=== PATIENT | male | born 1970 | race Caucasian/White ===

== ENCOUNTER → 2020-11-17 | Outpatient (CLI) | payer OTHER ==
[~2020-11-17] MED LIST: BENTYL 10MG CAP10 MG PO; HYDRALAZINE HCL25 MG PO; IBUPROFEN600 MG PO; MOBIC7.5 MG PO; NORFLEX 100 MG100 MG PO; PROTONIX40 MG PO; Voltaren Gel 1 % TOP; ZOFRAN ODT 4 MG4 MG PO
== END ==
LOC: KOH-I 13:41
DX: N18.32 Chronic kidney disease, stage 3b (principal); G31.9 Degenerative disease of nervous system, unspecified
CPT/HCPCS: 76775

== ENCOUNTER → 2021-01-09 | Outpatient (CLI) | payer OTHER | LOC: LAB 10:12 | PROVIDERS: Physician Assistant Medical | DX: I10 Essential (primary) hypertension (principal) | CPT/HCPCS: 36415; 80048 ==

== ENCOUNTER → 2021-01-19 | Outpatient (CLI) | payer OTHER | LOC: LAB 15:12 | PROVIDERS: Physician Assistant Medical | DX: N18.9 Chronic kidney disease, unspecified (principal) | CPT/HCPCS: 36415; 80069 ==

== ENCOUNTER → 2021-01-25 | Outpatient (CLI) | payer OTHER | LOC: SLEEP 11:38 | DX: G47.33 Obstructive sleep apnea (adult) (pediatric) (principal) | CPT/HCPCS: 95810 ==

== ENCOUNTER → 2021-01-29 | Outpatient (CLI) | payer OTHER ==
[2021-01-29 18:23] LABS: HEMOGLOBIN 14.1 gm/dl (14.0-17.5); RED BLOOD COUNT 4.6 M/UL (4.20-5.50)
== END ==
LOC: LAB 17:26
PROVIDERS: Physician Assistant Medical
DX: N18.9 Chronic kidney disease, unspecified (principal)
CPT/HCPCS: 36415; 80069; 82043; 82570; 84156; 85027

== ENCOUNTER → 2021-03-12 | Outpatient (CLI) | payer OTHER ==
[2021-03-12 19:50] LABS: HEMOGLOBIN 13.7 gm/dl (14.0-17.5); RED BLOOD COUNT 4.44 M/UL (4.20-5.50); WHITE BLOOD COUNT 11.6 K/UL (4.5-11.0)
[2021-03-14 08:14] LABS: HIV SCREEN 4TH GENERATION WRFX Non Reactive (Non Reactive)
[2021-03-14 09:13] LABS: COMPLEMENT C3, SERUM 129 mg/dL (82-167); COMPLEMENT C4, SERUM 21 mg/dL (12-38); HBSAG SCREEN Negative (Negative); HEP A AB, IGM Negative (Negative); HEP B CORE AB, IGM Negative (Negative); HEP C VIRUS AB <0.1 (0.0-0.9)
[2021-03-14 16:09] LABS: ANTI-DSDNA ANTIBODIES 2 IU/mL (0-9)
[2021-03-16 17:11] LABS: A/G RATIO 1.3 (0.7-1.7); ALBUMIN 3.5 g/dL (2.9-4.4); ALPHA-1-GLOBULIN 0.2 g/dL (0.0-0.4); ALPHA-2-GLOBULIN 0.8 g/dL (0.4-1.0); BETA GLOBULIN 0.8 g/dL (0.7-1.3); GAMMA GLOBULIN 0.9 g/dL (0.4-1.8); GLOBULIN, TOTAL 2.7 g/dL (2.2-3.9); IMMUNOGLOBULIN A, QN, SERUM 238 mg/dL (90-386); IMMUNOGLOBULIN G, QN, SERUM 889 mg/dL (603-1613); IMMUNOGLOBULIN M, QN, SERUM 63 mg/dL (20-172); M-SPIKE Not Observed g/dL (Not Observed); PROTEIN, TOTAL, SERUM 6.2 g/dL (6.0-8.5)
== END ==
LOC: LAB 18:44
PROVIDERS: Physician Assistant Medical
DX: N18.9 Chronic kidney disease, unspecified (principal); R80.9 Proteinuria, unspecified
CPT/HCPCS: 36415; 80069; 80074; 81001; 82043; 82784; 83883; 84155; 84156; 84165; 85027; 86038; 86160; 86225; 86334; 86701; 86702; 87389

== ENCOUNTER → 2021-05-12 | Outpatient (CLI) | payer OTHER ==
[2021-05-12 18:56] LABS: HEMOGLOBIN 14.4 gm/dl (14.0-17.5); RED BLOOD COUNT 4.63 M/UL (4.20-5.50); WHITE BLOOD COUNT 6.5 K/UL (4.5-11.0)
== END ==
LOC: LAB 17:45
PROVIDERS: Physician Assistant Medical
DX: N18.4 Chronic kidney disease, stage 4 (severe) (principal)
CPT/HCPCS: 80069; 81001; 82043; 82570; 83516; 84156; 85027

== ENCOUNTER → 2021-09-14 | Outpatient (CLI) | payer OTHER ==
[2021-09-14 09:09] LABS: HEMOGLOBIN 14.4 gm/dl (14.0-17.5); RED BLOOD COUNT 4.68 M/UL (4.20-5.50); WHITE BLOOD COUNT 10.4 K/UL (4.5-11.0)
== END ==
LOC: LAB 07:53
PROVIDERS: Internal Medicine Nephrology
DX: I12.9 Hypertensive chronic kidney disease with stage 1 through stage 4 chronic kidney disease, or unspecified chronic kidney disease (principal); N18.32 Chronic kidney disease, stage 3b; R80.1 Persistent proteinuria, unspecified; E11.21 Type 2 diabetes mellitus with diabetic nephropathy; Z79.4 Long term (current) use of insulin; E11.22 Type 2 diabetes mellitus with diabetic chronic kidney disease
CPT/HCPCS: 36415; 80069; 82570; 83970; 84156; 85027

== ENCOUNTER → 2021-11-17 | Outpatient (CLI) | payer OTHER ==
[2021-11-18 10:15] LABS: CALCIUM, SERUM 8.8 mg/dL (8.7-10.2); CREATININE, SERUM 2.5 mg/dL (0.76-1.27); PHOSPHORUS, SERUM 4.3 mg/dL (2.8-4.1); POTASSIUM, SERUM 3.7 mmol/L (3.5-5.2)
== END ==
LOC: LAB 16:05
PROVIDERS: Internal Medicine Nephrology
DX: N18.4 Chronic kidney disease, stage 4 (severe) (principal); E87.5 Hyperkalemia
CPT/HCPCS: 80069

== ENCOUNTER → 2021-12-15 | Outpatient (CLI) | payer OTHER ==
[2021-12-15 15:03] LABS: HEMOGLOBIN 14.4 gm/dl (14.0-17.5); RED BLOOD COUNT 4.87 M/UL (4.20-5.50); WHITE BLOOD COUNT 11.3 K/UL (4.5-11.0)
== END ==
LOC: LAB 13:36
PROVIDERS: Internal Medicine Nephrology
DX: I12.9 Hypertensive chronic kidney disease with stage 1 through stage 4 chronic kidney disease, or unspecified chronic kidney disease (principal); N18.4 Chronic kidney disease, stage 4 (severe); R80.8 Other proteinuria; E55.9 Vitamin D deficiency, unspecified
CPT/HCPCS: 36415; 80069; 82570; 83970; 84156; 85027

== ENCOUNTER → 2022-03-10 | Outpatient (CLI) | payer OTHER ==
[2022-03-10 13:18] LABS: HEMOGLOBIN 15.3 gm/dl (14.0-17.5); RED BLOOD COUNT 5.07 M/UL (4.20-5.50); WHITE BLOOD COUNT 11.6 K/UL (4.5-11.0)
== END ==
LOC: LAB 12:50
PROVIDERS: Internal Medicine Nephrology
DX: I12.9 Hypertensive chronic kidney disease with stage 1 through stage 4 chronic kidney disease, or unspecified chronic kidney disease (principal); N18.4 Chronic kidney disease, stage 4 (severe); R80.2 Orthostatic proteinuria, unspecified; E55.9 Vitamin D deficiency, unspecified
CPT/HCPCS: 36415; 80069; 82570; 83970; 84156; 85027